=== PATIENT | male | born 1990 | race Two or more races ===

== ENCOUNTER 2016-04-11 08:55 | Emergency (ER) | payer OTHER ==
[~2016-04-11] VITALS: Ht 180.3 cm; Wt 80.9 kg
[~2016-04-11 08:55] MED LIST: AUGMENTIN875 MG PO; PERCOCET 5/31 TABLET PO
[2016-04-11] MEDS ORDERED: FLEXERIL10 MG PO (09:42)
[2016-04-11] MEDS ORDERED: NAPROXEN500 MG PO (09:42)
[2016-04-11 10:37] VITALS: BP 103/48
== END 2016-04-11 10:38 | disposition home or self-care (01) ==
LOC: EME 08:55
DX: M79.1 Myalgia (principal); M79.661 Pain in right lower leg; M79.662 Pain in left lower leg
CPT/HCPCS: 99281; 99284; J1885

== ENCOUNTER 2017-02-15 10:27 | Emergency (ER) | payer OTHER ==
[~2017-02-15] VITALS: Ht 180.3 cm; Wt 86.0 kg
[~2017-02-15 10:27] MED LIST changes: +FLEXERIL10 MG PO; +NAPROXEN500 MG PO
[2017-02-15 11:24] LABS: SOURCE URINE
[2017-02-15 13:02] LABS: APPEARANCE CLEAR ((CLEAR)); BILIRUBIN NEGATIVE; BLOOD SMALL; COLOR STRAW ((YELLOW)); GLUCOSE (STRIP) NEGATIVE; KETONES NEGATIVE; LEUKOCYTES TRACE; NITRITE NEGATIVE; PROTEIN (STRIP) NEGATIVE; SPECIFIC GRAVITY 1.011 (1.000-1.030); UROBILINOGEN 0.2 MG/DL (0.2-1.0)
[2017-02-15 13:10] LABS: BACTERIA RARE /HPF; EPITHELIAL CELLS RARE /HPF; MUCUS NONE SEEN /LPF; RED BLOOD CELLS 0-5 /HPF (0-5); UCUL ADDED? YES
[2017-02-15 14:14] VITALS: BP 137/77
[2017-02-16 14:28] LABS: CHLAMYDIA TRACHOMATIS NEGATIVE; NEISSERIA GONORRHOEAE NEGATIVE
== END 2017-02-15 14:15 | disposition home or self-care (01) ==
LOC: EME 10:27
PROVIDERS: Physician Assistant
DX: N34.2 Other urethritis (principal); Z11.3 Encounter for screening for infections with a predominantly sexual mode of transmission
CPT/HCPCS: 81003; 87086; 87491; 87591; 99281; 99284; J0696